=== PATIENT | female | born 1970 | race Caucasian/White ===

== ENCOUNTER → 2021-08-28 | Outpatient (CLI) | payer OTHER ==
[~2021-08-28] MED LIST: "DEPAKOTE \\\"ER\\\"500 MG" PO; ALBUTEROL INH; GABAPENTIN800 MG PO; HYDROXYZINE PAM25 MG PO; IMITREX50 MG PO; LEVOTHYROXINE200 MC1 PO; LEXAPRO20 MG PO; METOPROLOL SUCC25 MG PO; NAPROXEN500 MG PO; OLANZAPINE10 MG PO; OMEPRAZOLE40 MG PO; PROMETHAZINE HC25 M1 PO; ROBAXIN 750 MG750 MG PO; SIMVASTATIN20 MG PO
[2021-08-28 11:49] LABS: HEMOGLOBIN 13.6 gm/dl (12.3-15.3); RED BLOOD COUNT 4.23 M/UL (4.00-5.10); WHITE BLOOD COUNT 12.3 K/UL (4.5-11.0)
== END ==
LOC: OPSV2 08-25 10:00
PROVIDERS: Orthopaedic Surgery
DX: Z01.818 Encounter for other preprocedural examination (principal); S82.842A Displaced bimalleolar fracture of left lower leg, initial encounter for closed fracture; R94.31 Abnormal electrocardiogram [ECG] [EKG]
CPT/HCPCS: 71046; 80048; 85027; 93005

== ENCOUNTER → 2021-09-01 | Day surgery (SDC) | payer OTHER ==
[~2021-09-01] VITALS: Ht 157.5 cm; Wt 70.3 kg
[~2021-09-01] MED LIST changes: +HYDROCODON-ACE1 EAC2 PO
== END | disposition home or self-care (01) ==
LOC: OR 08-27 07:30
DX: S82.842A Displaced bimalleolar fracture of left lower leg, initial encounter for closed fracture (principal); I10 Essential (primary) hypertension; E78.5 Hyperlipidemia, unspecified; J44.9 Chronic obstructive pulmonary disease, unspecified; K21.9 Gastro-esophageal reflux disease without esophagitis; M19.90 Unspecified osteoarthritis, unspecified site; I25.10 Atherosclerotic heart disease of native coronary artery without angina pectoris; I25.2 Old myocardial infarction; E03.9 Hypothyroidism, unspecified; F41.9 Anxiety disorder, unspecified; F32.9 Major depressive disorder, single episode, unspecified; F17.210 Nicotine dependence, cigarettes, uncomplicated; W19.XXXA Unspecified fall, initial encounter; Y93.01 Activity, walking, marching and hiking; Y92.009 Unspecified place in unspecified non-institutional (private) residence as the place of occurrence of the external cause; Z90.49 Acquired absence of other specified parts of digestive tract; Z88.0 Allergy status to penicillin; Z79.899 Other long term (current) drug therapy
CPT/HCPCS: 73610; 76000; C1713; J0171; J1100; J2001; J2250; J2704; J2795; J7120

== ENCOUNTER → 2022-01-28 | Outpatient (CLI) | payer OTHER | LOC: EMI 08:25 | DX: S99.922A Unspecified injury of left foot, initial encounter (principal); D36.13 Benign neoplasm of peripheral nerves and autonomic nervous system of lower limb, including hip; R93.7 Abnormal findings on diagnostic imaging of other parts of musculoskeletal system | CPT/HCPCS: 73718 ==